=== PATIENT | female | born 1975 | race Caucasian/White ===

== ENCOUNTER 2018-04-20 12:26 | Emergency (ER) | payer MEDICAID ==
[2018-04-20 12:28] VITALS: RESP 16
[2018-04-20 12:38] VITALS: BMI 28.3
--- NOTE | 2018-04-20 14:20 | RAD ---
Date of service: 04/20/2018 PROCEDURE: Radiographs of the Lumbar Spine. HISTORY: Low back pain s/p fall off of 3 steps of a ladder COMPARISON: No prior. FINDINGS: BONES: Slight rightward convexity thoraco lumbar junction. . No listhesis. No fracture. L5-S1 subchondral sclerosis and mild osteophytosis The well corticated appearance of the sacrococcygeal segments can be seen with normal variation. Clinical correlation recommended DISC SPACES: L5-S1 disc space narrowing OTHER FINDINGS: Central pelvic IUD in place. Right hemipelvic phleboliths. IMPRESSION: No lumbar spine vertebral body compression fracture. L5-S1 degenerative changes as above. Sacrococcygeal findings nonspecific -as above correlate clinically with symptomatology. Central pelvic IUD in place
--- NOTE | 2018-04-20 14:24 | C.PDOC ---
History Of Present Illness Pt states she was standing on the 3rd step of a ladder in her kitchen when the ladder folded and she fell. She hit her head against the stove (but no LOC). She c/o lower back pain. - HPI Time Seen by Provider: 04/20/18 13:03 Chief Complaint (Nursing): Trauma History Per: Patient, Family Injury Occurred (Timing): Just Before Arrival Location Of Injury: Right: Back (lower), Posterior: Back, Head Severity: Moderate Additional History Per: Prior Records - Fall Fall:Prior To Injury: Lost Balance Past Medical History Reviewed: Historical Data, Nursing Documentation, Vital Signs Vital Signs: Last Vital Signs Temp 98.5 F 04/20/18 12:27 Pulse 71 04/20/18 12:27 Resp 16 04/20/18 12:27 BP 94/56 L 04/20/18 12:27 Pulse Ox 100 04/20/18 12:27 - Medical History PMH: Anemia, Asthma, Back Problems Family History: States: Unknown Family Hx - Social History Hx Alcohol Use: No Hx Substance Use: No - Immunization History Hx Tetanus Toxoid Vaccination: No Hx Influenza Vaccination: No Hx Pneumococcal Vaccination: No Review Of Systems Except As Marked, All Systems Reviewed And Found Negative. Constitutional: Negative for: Fever, Weakness Cardiovascular: Negative for: Chest Pain Respiratory: Negative for: Shortness of Breath Gastrointestinal: Negative for: Vomiting, Abdominal Pain Genitourinary: Negative for: Incontinence, Hematuria Musculoskeletal: Positive for: Back Pain. Negative for: Neck Pain, Leg Pain Neurological: Negative for: Weakness, Numbness, Seizures, Altered Mental Status , Headache, Dizziness Physical Exam - Physical Exam Appears: Non-toxic, No Acute Distress Skin: Normal Color, Warm, Dry, No Rash Head: Atraumatic, Normacephalic Eye(s): bilateral: Normal Inspection, PERRL, EOMI Neck: Normal ROM, No Midline Cervical Tenderness, No Step Off Deformity, Supple Chest: Symmetrical, No Deformity, No Tenderness Cardiovascular: Rhythm Regular Respiratory: Normal Breath Sounds, No Accessory Muscle Use Gastrointestinal/Abdominal: Soft, No Tenderness Back: No CVA Tenderness, Paraspinal Tenderness (right lumbar) Extremity: Normal ROM, No Deformity Extremity: Bilateral: Hips Non-Tender, Pelvis-Stable Neurological/Psych: Oriented x3, Normal Motor, Normal Sensation ED Course And Treatment - Laboratory Results Urine POC: Negative O2 Sat by Pulse Oximetry: 100 Pulse Ox Interpretation: Normal - Other Rad LS Spine x-rays X-Ray: Viewed By Me, Read By Radiologist Interpretation: IMPRESSION: No lumbar spine vertebral body compression fracture. L5-S1 degenerative changes as above. Sacrococcygeal findings nonspecific -as above correlate clinically with symptomatology. Central pelvic IUD in place Reassessment Condition: Improved Disposition Counseled Patient/Family Regarding: Studies Performed, Diagnosis, Need For Followup, Rx Given - Disposition Referrals: Chadd Nino MD [Medical Doctor] - Disposition: HOME/ ROUTINE Disposition Time: 14:26 Condition: IMPROVED Additional Instructions: Follow up with your doctor for further evaluation and treatment. Return to the ER if you develop weakness, numbness, trouble urinating, abdominal pain, vomiting, worsening of symptoms or if you have any other concerns. Prescriptions: Cyclobenzaprine [Cyclobenzaprine HCl] 10 mg PO TID PRN #15 tab PRN Reason: Muscle Spasm Naproxen [Naprosyn] 1 tab PO BID PRN #20 tab PRN Reason: Pain Instructions: Low Back Pain (DC) - Clinical Impression Clinical Impression: Contusion of back, Fall from ladder
[2018-04-20 14:55] VITALS: PULSE 74; TEMP 98.2; O2SAT 98
[2018-04-20 14:57] VITALS: BP 104/66
== END 2018-04-20 14:55 | disposition home or self-care (01) ==
LOC: MERGE 12:26 → C.ER 12:26
DX: S30.0XXA Contusion of lower back and pelvis, initial encounter (principal); W11.XXXA Fall on and from ladder, initial encounter
CPT/HCPCS: 72100; 96372; 99284; J1885